=== PATIENT | female | born 1995 | race African-American/Black ===

== ENCOUNTER 2016-12-05 14:53 | Emergency (ER) | payer SELFPAY ==
[~2016-12-05] VITALS: Ht 167.6 cm; Wt 60.3 kg
[~2016-12-05 14:53] MED LIST: ALBU6.7H INH; CYCL5TAB PO; IBUP800T23 PO; NAPR-576 PO; PRED20 PO
[2016-12-05 14:55] VITALS: BP 100/57; PULSE 90; RESP 12; TEMP 99.1; O2SAT 97
--- NOTE | 2016-12-05 15:18 | PD ---
Physical Exam Date Seen by Provider: December 05, 2016 Time Seen by Provider: 15:16 Narrative Pt presents with left wrist pain after FOOSH last night. she states she tripped over her dog in the middle of the night. Pain is a 9/10 and aching. Pt has not taken any medications for the pain. VSS, awaiting bed placement. Data Data Last Documented VS Vital Signs Date Time Temp Pulse Resp B/P Pulse Ox O2 Delivery O2 Flow Rate FiO2 12/05/16 14:55 99.1 90 12 100/57 97 MDM Supervised Visit with GORDON: Zoey Padilla December 05, 2016 15:18
--- NOTE | 2016-12-05 16:13 | RADRPT ---
EXAM DATE/TIME: 12/05/2016 15:45 [facility] COMPARISON: No previous studies available for comparison. INDICATIONS : Left medial wrist pain after tripping last night. MEDICAL HISTORY : None. SURGICAL HISTORY : None. ENCOUNTER: Initial ACUITY: 2 days PAIN SCORE: 6/10 LOCATION: Left medial wrist. FINDINGS: Three view examination of the left wrist demonstrates no soft tissue swelling, dislocation, or fractu re. The carpal bones are in normal alignment. The joint spaces are maintained. Bony mineralization is normal. CONCLUSION: Normal examination for a patient of this age. Jose Ybarra MD on December 05, 2016 at 16:01 Board Certified Radiologist. This report was verified electronically.
[2016-12-05] MEDS ORDERED: IBUP800T23 PO (16:34)
--- NOTE | 2016-12-05 16:35 | PD ---
HPI Chief Complaint: Injury Time Seen by Provider: 16:33 Travel History International Travel<30 days: No Contact w/Intl Traveler<30days: No Traveled to known affect area: No History of Present Illness HPI 20-year-old female presents emergency Department with complaint of left wrist pain after falling over her dog and hitting it on a dresser. The patient did not fall to the floor. She only hit her hand on the dresser. Denies paresthesias, loss of sensation, decreased range of motion to the affected extremity. Reports decreased range of motion to the wrist secondary to pain. Has not taken any medications or tried any chance to repeat her symptoms. Has no other medical complaints. No known allergies. No other modifying factors or associated signs and symptoms. PFSH Past Medical History ?: Not LMP: 11/25/16 : 0 Para: 0 Past Surgical History Appendectomy: Yes Social History Alcohol Use: Yes (1/DRINK PER WEEK) Tobacco Use: No Substance Use: Yes (7/WEEK) Allergies-Medications (Allergen,Severity, Reaction): Coded Allergies: No Known Allergies (Unverified , 12/05/16) Reported Meds & Prescriptions Reported Meds & Active Scripts Active Ibuprofen 800 Mg Tab 800 Mg PO Q6HR PRN Review of Systems Except as stated in HPI: all other systems reviewed are Neg Physical Exam Narrative GENERAL: Well-nourished, well-developed female patient, in no acute distress SKIN: Warm and dry. HEAD: Atraumatic. Normocephalic. EYES: Pupils equal and round. No scleral icterus. No injection or drainage. ENT: Mucosa pink and moist. Airway patent. NECK: Trachea midline. CARDIOVASCULAR: Regular rate. RESPIRATORY: No accessory muscle use. GASTROINTESTINAL: Flat. MUSCULOSKELETAL: Left wrist with tenderness on palpation and without erythema, edema, ecchymosis; with full range of motion; all fingers with full range of motion and sensory intact; no obvious deformities. Left approximately supplementals 2+ radial pulse and sensory intact without erythema or edema. No obvious deformities. No clubbing. No cyanosis. NEUROLOGICAL: Awake and alert. Oriented 3. No obvious cranial nerve deficits. Motor grossly within normal limits. Normal speech. PSYCHIATRIC: Appropriate mood and affect; insight and judgment normal. Data Data Last Documented VS Vital Signs Date Time Temp Pulse Resp B/P Pulse Ox O2 Delivery O2 Flow Rate FiO2 12/05/16 14:55 99.1 90 12 100/57 97 Orders Wrist, Complete ([id number]) (12/05/16 ) Splint Or Brace Apply/Monitor (12/05/16 16:35) Ibuprofen (Motrin) (12/05/16 16:45) MDM Medical Decision Making Medical Screen Exam Complete: Yes Emergency Medical Condition: Yes Medical Record Reviewed: Yes Differential Diagnosis Wrist sprain, wrist fracture, wrist contusion Narrative Course 20-year-old female with unremarkable left wrist x-ray. Ibuprofen administered in the ER. Velcro wrist splint provided for support. Ibuprofen prescribed for home. Patient verbalizes understanding and agreement with treatment plan. Patient is medically cleared and stable for discharge. Discussed reasons to return to the emergency department. Instructed patient to follow up with primary care provider. Patient agrees with treatment plan. The patients vital signs are stable and the patient is stable for outpatient follow-up and treatment. Patient discharged home, stable and in no acute distress. Diagnosis Primary Impression: Left wrist sprain Qualified Code: S63.502A - Left wrist sprain, initial encounter Referrals: Primary Care Physician Patient Instructions: General Instructions, Wrist Sprain (ED) Departure Forms: Tests/Procedures, Work Release Enter return to work date: December 12, 2016 Additional Instructions: Tylenol or ibuprofen as directed and as needed to reduce pain Rest, ice, compress, and elevate extremity to decrease pain and inflammation Gerald wrap for support Wrist Splint for support Avoid aggravating activity; increase activity as tolerated Follow-up with primary care provider Return to the emergency department immediately with worsening symptoms Med/Other Pt SpecificInfo: Prescription(s) given Scripts Ibuprofen 800 Mg [id number] Mg PO Q6HR PRN (PAIN) #30 TAB Ref 0 Prov:Teodora Tuttle 12/05/16 Disposition: 01 DISCHARGE HOME Condition: Stable Teodora Tuttle December 05, 2016 16:35
[2016-12-05] MEDS ORDERED: IBUPROFEN 800 MG TAB PO ONE (16:45)
== END 2016-12-05 16:46 | disposition home or self-care (01) ==
LOC: NEPK 14:53
DX: S63.502A Unspecified sprain of left wrist, initial encounter (principal); W01.190A Fall on same level from slipping, tripping and stumbling with subsequent striking against furniture, initial encounter; Y92.009 Unspecified place in unspecified non-institutional (private) residence as the place of occurrence of the external cause
CPT/HCPCS: 73110; 99283; L3908

== ENCOUNTER 2017-08-09 00:41 | Emergency (ER) | payer SELFPAY ==
[~2017-08-09 00:41] MED LIST changes: -ALBU6.7H INH; -CYCL5TAB PO; +IBUP1TAB7 PO; -IBUP800T23 PO; -NAPR-576 PO; -PRED20 PO
[2017-08-09 00:59] VITALS: BP 126/83; PULSE 79; RESP 18; TEMP 98.9; O2SAT 99
[2017-08-09] MEDS ORDERED: IBUPROFEN 800 MG TAB PO ONE (01:45)
[2017-08-09] MEDS ORDERED: BACT800T5 PO (01:46)
[2017-08-09] MEDS ORDERED: IBUP-232 PO (01:46)
[2017-08-09] MEDS ORDERED: CEPH-460 PO (01:46)
--- NOTE | 2017-08-09 01:46 | PD ---
HPI Chief Complaint: Skin Problem Time Seen by Provider: 01:06 Travel History International Travel<30 days: No Contact w/Intl Traveler<30days: No Traveled to known affect area: No History of Present Illness HPI 21-year-old female presents to emergency department for evaluation of painful lesion her left axilla noticed it about a week ago. States it is getting larger and more painful. No fever or chills. Pain is constant, moderate in severity, but worse with movement of the extremity. She has no other symptoms to report. [facility] Past Medical History Medical History: Denies Significant Hx ?: Not LMP: 07/28/17 : 0 Para: 0 Past Surgical History Appendectomy: Yes Social History Alcohol Use: Yes (OCC) Tobacco Use: No Substance Use: Yes (marijuana OCC) Allergies-Medications (Allergen,Severity, Reaction): Coded Allergies: No Known Allergies (Unverified , 12/05/16) Reported Meds & Prescriptions Reported Meds & Active Scripts Active Ibuprofen 600 Mg Tab 600 Mg PO Q8HR PRN Keflex (Cephalexin) 500 Mg Cap 500 Mg PO Q6H 5 Days Bactrim DS (Sulfamethoxazole-Trimethoprim) 800-160 Mg Tab 1 Tab PO BID Ibuprofen 800 Mg Tab 800 Mg PO Q6HR PRN Review of Systems Except as stated in HPI: all other systems reviewed are Neg Physical Exam Narrative GENERAL: Well-nourished, well-developed female patient in no acute distress SKIN: There is an indurated area in the left axilla which measures about 3 cm in diameter. It is fluctuant but there is no pointing or drainage. There is a zone of inflammation around it but no lymphangitis. HEAD: Normocephalic. EYES: No scleral icterus. No injection or drainage. NECK: Supple, trachea midline. No JVD or lymphadenopathy. CARDIOVASCULAR: Regular rate and rhythm without murmurs, gallops, or rubs. RESPIRATORY: Breath sounds equal bilaterally. No accessory muscle use. MUSCULOSKELETAL: No cyanosis, or edema. BACK: Nontender without obvious deformity. No CVA tenderness. Data Data Last Documented VS Vital Signs Date Time Temp Pulse Resp B/P (MAP) Pulse Ox O2 Delivery O2 Flow Rate FiO2 08/09/17 00:59 98.9 79 18 126/83 (97) 99 Orders Orders Wound Care (08/09/17 01:43) Ibuprofen (Motrin) (08/09/17 01:45) Ed Discharge Order (08/09/17 01:44) Wound Culture And Gram Stain (08/09/17 01:50) [facility] Medical Decision Making Medical Screen Exam Complete: Yes Emergency Medical Condition: Yes Medical Record Reviewed: Yes Differential Diagnosis Abscess versus cellulitis versus folliculitis versus insect bite Narrative Course 21-year-old female presents to emergency department for evaluation of painful lesion left axilla. She appears well. ID is complete. Culture is obtained. She is counseled on care. She agrees to return immediately with any acute worsening of symptoms. Procedures Procedure Narrative INCISION AND DRAINAGE OF ABSCESS: The area was prepped and was sterilely draped. Topical ethyl chloride used to anesthetize the area. The area was properly anesthetized. A number 11 scalpel was used to make a 1 cm incision across the area of the abscess. Cultures were obtained. The abscess was drained an irrigated with normal saline. Patient tolerated this well. Diagnosis Primary Impression: Abscess of left axilla Referrals: Primary Care Physician Patient Instructions: Abscess Incision and Drainage (DC), General Instructions Additional Instructions: Warm compresses to the affected area Follow-up with a primary care provider Return immediately with any acute worsening of symptoms Med/Other Pt SpecificInfo: Prescription(s) given Scripts Ibuprofen (Ibuprofen) 600 Mg Tab 600 MG PO Q8HR Y for PAIN, #30 TAB 0 Refills Prov: Karen Solorzano 08/09/17 Cephalexin (Keflex) 500 Mg Cap 500 MG PO Q6H for Infection for 5 Days, #20 CAP 0 Refills Prov: Karen Solorzano 08/09/17 Sulfamethoxazole-Trimethoprim (Bactrim DS) 800-160 Mg Tab 1 TAB PO BID for Infection, #20 TAB 0 Refills Prov: Karen Solorzano 08/09/17 Disposition: 01 DISCHARGE HOME Condition: Stable Karen Solorzano Aug 09, 2017 01:46
== END 2017-08-09 02:47 | disposition home or self-care (01) ==
LOC: NEPD 00:41
DX: L02.412 Cutaneous abscess of left axilla (principal); B95.7 Other staphylococcus as the cause of diseases classified elsewhere
CPT/HCPCS: 10060; 86403; 87070; 87077; 87186